=== PATIENT | male | born 1995 | race Caucasian/White ===

== ENCOUNTER 2018-10-07 16:27 | Emergency (ER) | payer MEDICAID ==
[~2018-10-07] VITALS: Ht 195.6 cm; Wt 109.1 kg
[~2018-10-07 16:27] MED LIST: ALBU18HF2 IH
[2018-10-07 16:47] VITALS: BP 124/70
[2018-10-07] MEDS ORDERED: NAPR-56 PO (16:55)
[2018-10-07] MEDS ORDERED: CYCL-1 PO (16:55)
== END 2018-10-07 17:21 | disposition home or self-care (01) ==
LOC: ER 16:27
DX: S13.4XXA Sprain of ligaments of cervical spine, initial encounter (principal); M25.512 Pain in left shoulder; F12.90 Cannabis use, unspecified, uncomplicated; V89.2XXA Person injured in unspecified motor-vehicle accident, traffic, initial encounter; Y93.89 Activity, other specified; Y92.488 Other paved roadways as the place of occurrence of the external cause; Y99.8 Other external cause status
CPT/HCPCS: 99283

== ENCOUNTER 2018-10-18 15:28 | Emergency (ER) | payer MEDICAID ==
[~2018-10-18] VITALS: Ht 198.1 cm; Wt 109.1 kg
[~2018-10-18 15:28] MED LIST changes: +CYCL-1 PO; +NAPR-56 PO
[2018-10-18 16:13] VITALS: BP 150/82
[2018-10-18] MEDS ORDERED: ERYT1OIN6 EACHEYE (16:40)
== END 2018-10-18 17:05 | disposition home or self-care (01) ==
LOC: ER 15:28
DX: H10.9 Unspecified conjunctivitis (principal); F12.90 Cannabis use, unspecified, uncomplicated
CPT/HCPCS: 99283

== ENCOUNTER 2018-10-25 23:52 | Emergency (ER) | payer MEDICAID ==
--- NOTE | 2018-10-25 23:55 | NUR ---
VISH RESPOMN FROM [facility] AFTER 1RST ATTEMPT TO CALL BACK. NOTED 3 MINUTES AFTER ARRIVAL. CALL PLACED TO NUMBER ON FILE. LEFT MESSAGE EXPRESSING CONCERN FOR PATIENTS WELL BEING AND ENCOURAGEMENT TO RETURN FOR EVAL. DR VELASQUEZ INFORMED
== END 2018-10-26 00:20 | disposition left against medical advice (07) ==
LOC: ER 23:53
DX: M25.579 Pain in unspecified ankle and joints of unspecified foot (principal); Z53.21 Procedure and treatment not carried out due to patient leaving prior to being seen by health care provider